=== PATIENT | male | born 1970 | race Caucasian/White ===

== ENCOUNTER → 2017-09-06 10:46 | Outpatient (CLI) | payer OTHER ==
[~2017-09-06] VITALS: Ht 152.4 cm; Wt 65.8 kg
== END | disposition home or self-care (01) ==
LOC: PPHC 10:46
DX: R10.9 Unspecified abdominal pain (principal)

== ENCOUNTER 2017-09-07 07:03 | Outpatient (CLI) | payer OTHER | END 2017-09-07 07:21 | disposition home or self-care (01) | LOC: LAB 07:03 | DX: E11.9 Type 2 diabetes mellitus without complications (principal); E78.4 Other hyperlipidemia; R10.9 Unspecified abdominal pain ==

== ENCOUNTER 2017-09-08 08:05 | Outpatient (CLI) | payer OTHER | END 2017-09-08 08:15 | disposition home or self-care (01) | LOC: SONOGRAMA 08:05 | DX: R10.9 Unspecified abdominal pain (principal) ==

== ENCOUNTER 2019-05-20 13:20 | Outpatient (CLI) | payer OTHER | END 2019-05-20 13:28 | disposition home or self-care (01) | LOC: LAB 13:20 | DX: J11.1 Influenza due to unidentified influenza virus with other respiratory manifestations (principal); R05 Cough ==